=== PATIENT | male | born 1970 | race Caucasian/White ===

== ENCOUNTER 2017-04-05 00:32 | Observation (INO) | payer BC ==
[~2017-04-05] VITALS: Ht 193 cm; Wt 104.5 kg
[2017-04-05 00:34] VITALS: BP 120/78; PULSE 91; RESP 20; TEMP 98.9; O2SAT 97
[2017-04-05] MEDS ORDERED: OMEP40CA2 PO (00:56)
[2017-04-05] MEDS ORDERED: MORPHINE SULFATE 4 MG/ML INJ IV PUSH ONE ×2 (01:15→06:30)
[2017-04-05] MEDS ORDERED: ONDANSETRON HCL 4 MG/2 ML VIAL IVP ONE (01:15)
[2017-04-05] MEDS ORDERED: SODIUM CHLOR 0.9% 1000 ML INJ 1,000 ML IV SCH ×2 (01:15→06:34)
[2017-04-05] MEDS ORDERED: SODIUM CHLORIDE 0.9% FLUSH 10 ML FLUSH IV FLUSH PRN ×2 (01:15→06:45)
[2017-04-05 01:42] LABS: BASOPHIL # 0.1 TH/MM3 (0-0.2); BASOPHIL % 0.3 % (0.0-2.0); EOSINOPHIL % 0.1 % (0.0-4.0); HEMATOCRIT 43.6 % (39.0-51.0); HEMO FLAGS DIFF FINAL; LYMPH % 6.5 % (9.0-44.0); LYMPHOCYTE # 1.1 TH/MM3 (1.0-4.8); MEAN CELL VOLUME 91.9 FL (80.0-100.0); MEAN CORPUSCULAR HEMOGLOBIN 31.3 PG (27.0-34.0); MONO % 5.2 % (0.0-8.0); NEUT % 87.9 % (16.0-70.0); PLATELET COUNT 251 TH/MM3 (150-450); RED BLOOD COUNT 4.75 MIL/MM3 (4.50-5.90); RED CELL DISTRIBUTION WIDTH 13.5 % (11.6-17.2)
[2017-04-05 01:51] LABS: PROTHROMBIN TIME - PATIENT 10.7 SEC (9.8-11.6)
[2017-04-05 01:56] LABS: ALT (GPT) 19 U/L (12-78); ANION GAP 9 MEQ/L (5-15); AST (GOT) 17 U/L (15-37); BICARBONATE 25.4 MEQ/L (21.0-32.0); BLOOD UREA NITROGEN 15 MG/DL (7-18); CHLORIDE 108 MEQ/L (98-107); GLOMERULAR FILTRATION RATE 79 ML/MIN (>89); POTASSIUM 3.8 MEQ/L (3.5-5.1); SODIUM (NA) 142 MEQ/L (136-145)
[2017-04-05 01:58] LABS: ALKALINE PHOSPHATASE 72 U/L (45-117); TOTAL BILIRUBIN ADULT 0.6 MG/DL (0.2-1.0)
[2017-04-05] MEDS ORDERED: IOHEXOL 350 MG/ML 10 ML VIAL (for RAD DIAG) IV ONE (03:06)
--- NOTE | 2017-04-05 04:10 | RADRPT ---
EXAM DATE/TIME: 04/05/2017 03:05 [place] COMPARISON: No previous studies available for comparison. INDICATIONS : Abdominal pain with nausea and vomiting. IV CONTRAST: 98 cc Omnipaque 350 (iohexol) IV ORAL CONTRAST: No oral contrast ingested. RADIATION DOSE: 10.05 CTDIvol (mGy) MEDICAL HISTORY : None SURGICAL HISTORY : None. ENCOUNTER: Initial ACUITY: 1 day PAIN SCALE: 10/10 LOCATION: Bilateral abdomen TECHNIQUE: Volumetric scanning of the abdomen and pelvis was performed. Using automated exposure control and ad justment of the mA and/or kV according to patient size, radiation dose was kept as low as reasonably achievable to obtain optimal diagnostic quality images. DICOM format image data is available electro nically for review and comparison. FINDINGS: LOWER LUNGS: The visualized lower lungs are clear. LIVER: Homogeneous density without lesion. There is no dilation of the biliary tree. No calcified gallston es. SPLEEN: Normal size without lesion. PANCREAS: Within normal limits. KIDNEYS: Normal in size and shape. There is no mass, stone or hydronephrosis. Multiple left-sided renal cysts . Punctate nonobstructing left renal calculus. At, measuring one and 2 mm. ADRENAL GLANDS: Within normal limits. VASCULAR: There is no aortic aneurysm. BOWEL/MESENTERY: There is wall thickening versus nondistention of the colon. No inflammatory changes.. There is no fr ee intraperitoneal air or fluid. ABDOMINAL WALL: Within normal limits. RETROPERITONEUM: There is no lymphadenopathy. BLADDER: No wall thickening or mass. REPRODUCTIVE: Within normal limits. INGUINAL: There is no lymphadenopathy or hernia. MUSCULOSKELETAL: Within normal limits for patient age. CONCLUSION: 1. Wall thickening versus nondistention of the colon. No inflammatory changes. 2. Nonobstructing punctate left renal calculus. 3. Left-sided renal cyst. Ortiz Kay MD on April 05, 2017 at 4:04 Board Certified Radiologist. This report was verified electronically.
[2017-04-05] MEDS ORDERED: ONDANSETRON HCL 4 MG/2 ML VIAL IV PUSH ONE (05:00)
[2017-04-05 05:38] LABS: BLOOD, URINE TRACE (NEG); GLUCOSE,URINE NEG (NEG); KETONE, URINE 80 mg/dL (NEG); MUCUS URINE FEW /lpf (OCC); NITRITE,URINE NEG (NEG); URINE COLOR YELLOW (YELLW/STRAW)
[2017-04-05 05:39] LABS: COMMENT (UR) CULT NOT INDICATED; CULTURE IF INDICATED CULT NOT INDICATED
[2017-04-05 05:44] VITALS: O2SAT 100
[2017-04-05] MEDS ORDERED: oxyCODONE/ACETAMINOPHEN 5 MG/325 MG TAB PO ONE (05:45)
--- NOTE | 2017-04-05 06:38 | PD ---
HPI Chief Complaint: Abdominal Pain Time Seen by Provider: 01:01 Travel History International Travel<30 days: No Contact w/Intl Traveler<30days: No Traveled to known affect area: No History of Present Illness HPI Patient is a 46-year-old male who comes in complaining of abdominal pain. He says the pain started about 4 hours ago and has been getting worse. He says he gets bouts of this pain every so often, and the only thing that fixes it is morphine. Also reports nausea and vomiting. He denies fever or chills. He was drinking alcohol tonight. [facility] Past Medical History Medical History: Denies Significant Hx Diminished Hearing: No Past Surgical History Surgical History: No Previous Surgery Social History Alcohol Use: Yes (OCCASIONALLY ) Tobacco Use: No Substance Use: Yes (MARIJUANA) Allergies-Medications (Allergen,Severity, Reaction): Coded Allergies: No Known Allergies (Unverified , 04/05/17) Reported Meds & Prescriptions Reported Meds & Active Scripts Active Reported Omeprazole 40 Mg Cap 40 Mg PO DAILY Review of Systems Except as stated in HPI: all other systems reviewed are Neg General / Constitutional: No: Fever, Chills HENT: No: Headaches, Lightheadedness Cardiovascular: No: Chest Pain or Discomfort Respiratory: No: Shortness of Breath Gastrointestinal: Positive: Nausea, Vomiting, Abdominal Pain Genitourinary: No: Dysuria Musculoskeletal: No: Myalgias, Edema Skin: No Rash, No Change in Pigmentation Neurologic: No: Weakness, Dizziness Physical Exam Narrative GENERAL: Awake and alert, in mild distress due to pain. SKIN: Focused skin assessment warm/dry. HEAD: Atraumatic. Normocephalic. EYES: Pupils equal and round. No scleral icterus. ENT: No nasal bleeding or discharge. Mucous membranes pink and moist. NECK: Trachea midline. No JVD. CARDIOVASCULAR: Regular rate and rhythm. No murmur appreciated. RESPIRATORY: No accessory muscle use. Clear to auscultation. Breath sounds equal bilaterally. GASTROINTESTINAL: Abdomen soft, nondistended. Tender to palpation diffusely, worse in the epigastric area. MUSCULOSKELETAL: No obvious deformities. No clubbing. No cyanosis. No edema. NEUROLOGICAL: Awake and alert. No obvious cranial nerve deficits. Motor grossly within normal limits. Normal speech. PSYCHIATRIC: Appropriate mood and affect; insight and judgment normal. Data Data Last Documented VS Vital Signs Date Time Temp Pulse Resp B/P Pulse Ox O2 Delivery O2 Flow Rate FiO2 04/05/17 05:44 100 Room Air 04/05/17 00:34 98.9 91 20 120/78 Orders Complete Blood Count With Diff (04/05/17 01:15) Comprehensive Metabolic Panel (04/05/17 01:15) Lipase (04/05/17 01:15) Prothrombin Time / Inr (Pt) (04/05/17:15) Act Partial Throm Time (Ptt) (04/05/17:15) Urinalysis - C+S If Indicated (04/05/17:15) Ua Includes Microscopic (04/05/17:15) Ct Abd/Pel W Iv Contrast(Rout) (04/05/17:15) Iv Access Insert/Monitor (04/05/17:15) Ecg Monitoring (04/05/17:15) Oximetry (04/05/17 01:15) Morphine Inj (Morphine Inj) (04/05/17 01:15) Ondansetron Inj (Zofran Inj) (04/05/17 01:15) Sodium Chlor 0.9% 1000 Ml Inj (Ns 1000 M (04/05/17 01:15) Sodium Chloride 0.9% Flush (Ns Flush) (04/05/17 01:15) Iohexol 350 Inj (Omnipaque 350 Inj) (04/05/17 03:06) Ondansetron Inj (Zofran Inj) (04/05/17 05:00) Oxycodone-Acetamin 5-325 Mg (Percocet (04/05/17 05:45) Morphine Inj (Morphine Inj) (04/05/17 06:30) Labs Laboratory Tests Test 04/05/17 04/05/17 01:35 05:10 White Blood Count 17.0 TH/MM3 Red Blood Count 4.75 MIL/MM3 Hemoglobin 14.8 GM/DL Hematocrit 43.6 % Mean Corpuscular Volume 91.9 FL Mean Corpuscular Hemoglobin 31.3 PG Mean Corpuscular Hemoglobin 34.0 % Concent Red Cell Distribution Width 13.5 % Platelet Count 251 TH/MM3 Mean Platelet Volume 8.8 FL Neutrophils (%) (Auto) 87.9 % Lymphocytes (%) (Auto) 6.5 % Monocytes (%) (Auto) 5.2 % Eosinophils (%) (Auto) 0.1 % Basophils (%) (Auto) 0.3 % Neutrophils # (Auto) 15.0 TH/MM3 Lymphocytes # (Auto) 1.1 TH/MM3 Monocytes # (Auto) 0.9 TH/MM3 Eosinophils # (Auto) 0.0 TH/MM3 Basophils # (Auto) 0.1 TH/MM3 CBC Comment DIFF FINAL Differential Comment Prothrombin Time 10.7 SEC Prothromb Time International 1.0 RATIO Ratio Activated Partial 24.0 SEC Thromboplast Time Sodium Level 142 MEQ/L Potassium Level 3.8 MEQ/L Chloride Level 108 MEQ/L Carbon Dioxide Level 25.4 MEQ/L Anion Gap 9 MEQ/L Blood Urea Nitrogen 15 MG/DL Creatinine 1.02 MG/DL Estimat Glomerular Filtration 79 ML/MIN Rate Random Glucose 132 MG/DL Calcium Level 9.1 MG/DL Total Bilirubin 0.6 MG/DL Aspartate Amino Transf 17 U/L (AST/SGOT) Alanine Aminotransferase 19 U/L (ALT/SGPT) Alkaline Phosphatase 72 U/L Total Protein 7.4 GM/DL Albumin 3.9 GM/DL Lipase 395 U/L Urine Color YELLOW Urine Turbidity CLEAR Urine pH 7.0 Urine Specific [place] GREATER THAN 1.050 Urine Protein 30 mg/dL Urine Glucose (UA) NEG mg/dL Urine Ketones 80 mg/dL Urine Occult Blood TRACE Urine Nitrite NEG Urine Bilirubin NEG Urine Urobilinogen LESS THAN 2.0 MG/DL Urine Leukocyte Esterase NEG Urine RBC 4 /hpf Urine WBC 5 /hpf Urine Mucus FEW /lpf Microscopic Urinalysis Comment CULT NOT INDICATED MDM Medical Decision Making Medical Screen Exam Complete: Yes Emergency Medical Condition: Yes Differential Diagnosis Pancreatitis versus cholecystitis versus cholelithiasis versus gastritis Narrative Course Patient is a 46-year-old male who comes in complaining of abdominal pain with nausea and vomiting. Exam shows diffuse tenderness, worse in the epigastric area. IV established, labs sent. Labs showed elevated lipase at 365. CT abdomen and pelvis shows no acute abnormal maladies. Patient given IV fluids, morphine, Zofran. Patient was comfortable for a little while, but then started to complain of pain again. He was given a Percocet and a second dose of Zofran. He continued to complain of pain. Given another dose of morphine. Patient will be placed in observation for further management. Diagnosis Primary Impression: Pancreatitis Qualified Code: K85.20 - Alcohol-induced acute pancreatitis without infection or necrosis Admitting Information Admitting Physician Requests: Observation Condition: Stable Shannon Varghese MD Apr 05, 2017 06:38
[2017-04-05] MEDS ORDERED: ONDANSETRON HCL 4 MG/2 ML VIAL IVP PRN (06:45)
[2017-04-05] MEDS ORDERED: MAGNESIUM HYDROXIDE SUSP 30 ML CUP PO PRN (06:45)
[2017-04-05] MEDS ORDERED: SENNOSIDES 8.6 MG TAB PO PRN (06:45)
[2017-04-05] MEDS ORDERED: BISACODYL 10 MG SUPP RECTAL PRN (06:45)
[2017-04-05] MEDS ORDERED: MORPHINE SULFATE 4 MG/ML INJ IV PRN (06:45)
[2017-04-05] MEDS ORDERED: LACTULOSE SYRUP 20 GM/30 ML CUP PO PRN (06:45)
[2017-04-05] MEDS ORDERED: ACETAMINOPHEN 325 MG TAB PO PRN (06:45)
[2017-04-05] MEDS ORDERED: CIPROFLOXACIN 400 MG PREMIX 200 ML IV SCH (08:00)
[2017-04-05] MEDS ORDERED: metroNIDAZOLE 500 MG INJ 100 ML IV SCH (08:00)
[2017-04-05 08:35] VITALS: BP 140/78; PULSE 60; RESP 18; TEMP 97.8; O2SAT 96
[2017-04-05] MEDS ORDERED: PANTOPRAZOLE SODIUM 40 MG VIAL IV PUSH SCH (09:00)
[2017-04-05] MEDS ORDERED: DOCUSATE SODIUM 50 MG/SENNA 8.6 MG TAB PO SCH (09:00)
[2017-04-05] MEDS ORDERED: SODIUM CHLORIDE 0.9% FLUSH 10 ML FLUSH IV FLUSH SCH (09:00)
--- NOTE | 2017-04-05 09:10 | PD.CONS ---
HPI History of Present Illness This is a 46 year old male who presented to the ER with c/o worsening abdominal pain that started last night. Patient reports abdominal pain is diffuse, intermittent, and worse with movement. Describes the pain as if his "insides are turning out." States Morphine does help control the pain, but now it is starting to wear off. Reports nausea, but no vomiting. States he is having normal BMs, no melena or hematochezia. Patient states that he was drinking last night before symptom onset and reports that he had 4 beers. States he does not drink alcohol that often. He has had similar episodes in the past and has been hospitalized during these episodes. He reports during his hospitalizations his workup is always "normal" and no one can figure out what is wrong with him. He has had EGD/Colonoscopy in the past about 2 years ago in [place], which showed "acid" and "gas" per patient. Patient denies any other medical issues and the only medication he is on is Omeprazole. (Sameera Singh) PFSH Past Medical History None reported Past Surgical History EGD/Colonoscopy, 2 years ago in [place] (Sameera Singh) Coded Allergies: No Known Allergies (Unverified , 04/05/17) Medications Current Medications Medications (Trade) Dose Ordered Sig/Chi Route PRN Reason Start Time Stop Time Status Last Admin Dose Admin Pantoprazole Sodium 40 mg 40 mg Q12H IV PUSH 04/05/17 09:00 Ciprofloxacin/ Dextrose 200 ml @ 200 mls/hr Q12H IV 04/05/17 08:00 Metronidazole 100 ml @ 100 mls/hr Q8H IV 04/05/17 08:00 Sodium Chloride (NS 1000 ml Inj) 1,000 ml @ 100 mls/hr Q10H IV 04/05/17 06:34 Sodium Chloride (NS Flush) 2 ml UNSCH PRN IV FLUSH FLUSH AFTER USING IV ACCESS 04/05/17 06:45 Sodium Chloride (NS Flush) 2 ml BID IV FLUSH 04/05/17 09:00 Ondansetron HCl (Zofran Inj) 4 mg Q6H PRN IVP NAUSEA OR VOMITING 04/05/17 06:45 Acetaminophen (Tylenol) 650 mg Q6H PRN PO FEVER/PAIN SCALE 1 TO 2 04/05/17 06:45 Morphine Sulfate (Morphine Inj) 2 mg Q3H PRN IV Pain 6-10 04/05/17 06:45 Oxycodone HCl (Roxicodone) 5 mg Q4H PRN PO PAIN SCALE 3 TO 5 04/05/17 06:45 Senna/Docusate Sodium (Leanne-Colace) 1 tab BID PO 04/05/17 09:00 Magnesium Hydroxide (Milk Of Magnesia Liq) 30 ml Q12H PRN PO MILD - MODERATE CONSTIPATION 04/05/17 06:45 Sennosides (Senokot) 17.2 mg Q12H PRN PO MODERATE - SEVERE CONSTIPATION 04/05/17 06:45 Bisacodyl (Dulcolax Supp) 10 mg DAILY PRN RECTAL SEVERE CONSITIPATION 04/05/17 06:45 Lactulose (Lactulose Liq) 30 ml DAILY PRN PO SEVERE CONSITIPATION 04/05/17 06:45 Family History Noncontributory Social History ETOH, states he does not drink often, but last night he did drink 4 beers Tobacco, denies Illicit Drugs, Marijuana (Sameera Singh) Review of Systems Constitutional: DENIES: Diaphoretic episodes, Fatigue, Fever, Weight gain, Weight loss, Chills, Dizziness, Change in appetite, Night Sweats Endocrine: DENIES: Polydipsia, Polyuria Eyes: DENIES: Blurred vision, Photosensitivity, Double Vision Ears, nose, mouth, throat: DENIES: Hearing loss, Vertigo, Oral lesions, Throat pain, Hoarseness Respiratory: DENIES: Cough, Wheezing, Hemoptysis, Sputum production, Shortness of breath Cardiovascular: DENIES: Chest pain, Palpitations, Syncope, Lower Extremity Edema, Orthopnea, Claudication Gastrointestinal: COMPLAINS OF: Abdominal pain, Nausea, DENIES: Black stools, Bloody stools, Constipation, Diarrhea, Vomiting, Difficulty Swallowing, Anorexia , Odynophagia, Swelling of Abdomen, Heartburn, Hematemesis Genitourinary: DENIES: Urinary frequency, Urinary incontinence, Urgency, Hematuria, Dysuria, Nocturia Musculoskeletal: DENIES: Joint pain, Muscle aches, Stiffness, Joint Swelling, Back pain, Neck pain Integumentary: DENIES: Abnormal pigmentation, Nail changes, Pruritus, Rash, Jaundice Hematologic/lymphatic: DENIES: Bruising, Lymphadenopathy Immunologic/allergic: DENIES: Eczema, Urticaria Neurologic: DENIES: Abnormal gait, Headache, Localized weakness, Paresthesias Psychiatric: DENIES: Anxiety, Confusion, Mood changes, Depression, Agitation, Suicidal Ideation (Sameera Singh) GI Exam Vitals I&O Vital Signs Date Time Temp Pulse Resp B/P Pulse Ox O2 Delivery O2 Flow Rate FiO2 04/05/17 08:35 97.8 60 18 140/78 96 04/05/17 05:44 100 Room Air 04/05/17 00:34 98.9 91 20 120/78 97 Room Air Imaging Last Impressions Abdomen/Pelvis CT 04/05/17 0115 Signed Impressions: Service Date/Time: Wednesday, April 05, 2017 03:05 - CONCLUSION: 1. Wall thickening versus nondistention of the colon. No inflammatory changes. 2. Nonobstructing punctate left renal calculus. 3. Left-sided renal cyst. Ortiz Kay MD Laboratory Test 04/05/17 04/05/17 01:35 05:10 White Blood Count 17.0 TH/MM3 Red Blood Count 4.75 MIL/MM3 Hemoglobin 14.8 GM/DL Hematocrit 43.6 % Mean Corpuscular Volume 91.9 FL Mean Corpuscular Hemoglobin 31.3 PG Mean Corpuscular Hemoglobin 34.0 % Concent Red Cell Distribution Width 13.5 % Platelet Count 251 TH/MM3 Mean Platelet Volume 8.8 FL Neutrophils (%) (Auto) 87.9 % Lymphocytes (%) (Auto) 6.5 % Monocytes (%) (Auto) 5.2 % Eosinophils (%) (Auto) 0.1 % Basophils (%) (Auto) 0.3 % Neutrophils # (Auto) 15.0 TH/MM3 Lymphocytes # (Auto) 1.1 TH/MM3 Monocytes # (Auto) 0.9 TH/MM3 Eosinophils # (Auto) 0.0 TH/MM3 Basophils # (Auto) 0.1 TH/MM3 CBC Comment DIFF FINAL Differential Comment Prothrombin Time 10.7 SEC Prothromb Time International 1.0 RATIO Ratio Activated Partial 24.0 SEC Thromboplast Time Sodium Level 142 MEQ/L Potassium Level 3.8 MEQ/L Chloride Level 108 MEQ/L Carbon Dioxide Level 25.4 MEQ/L Anion Gap 9 MEQ/L Blood Urea Nitrogen 15 MG/DL Creatinine 1.02 MG/DL Estimat Glomerular Filtration 79 ML/MIN Rate Random Glucose 132 MG/DL Calcium Level 9.1 MG/DL Total Bilirubin 0.6 MG/DL Aspartate Amino Transf 17 U/L (AST/SGOT) Alanine Aminotransferase 19 U/L (ALT/SGPT) Alkaline Phosphatase 72 U/L Total Protein 7.4 GM/DL Albumin 3.9 GM/DL Lipase 395 U/L Urine Color YELLOW Urine Turbidity CLEAR Urine pH 7.0 Urine Specific [place] GREATER THAN 1.050 Urine Protein 30 mg/dL Urine Glucose (UA) NEG mg/dL Urine Ketones 80 mg/dL Urine Occult Blood TRACE Urine Nitrite NEG Urine Bilirubin NEG Urine Urobilinogen LESS THAN 2.0 MG/DL Urine Leukocyte Esterase NEG Urine RBC 4 /hpf Urine WBC 5 /hpf Urine Mucus FEW /lpf Microscopic Urinalysis Comment CULT NOT INDICATED Physical Examination HEENT: PERRLA; normocephalic; atraumatic; no jaundice. NECK: Neck is supple, no JVD, no lymphadenopathy. CHEST: CTA CARDIAC: RRR with no murmur gallop or rubs. ABDOMEN: Soft, nondistended, mild diffuse tenderness; no hepatosplenomegaly; bowel sounds x 4 quadrants EXTREMITIES: No clubbing, cyanosis, or edema. SKIN: Normal; no rash; no jaundice. [employer]: No focal deficits; alert and oriented x 3 (Sameera Singh) Assessment and Plan Plan ASSESSMENT Abdominal pain, with diffuse tenderness to palpation. Elevated lipase, 365 (04/05 ). Patient states he drank 4 beers prior to symptom onset. Has history of similar episodes of current symptoms. Had EGD/Colonoscopy 2 years ago in [place], which per patient showed "acid" and "gas," otherwise normal. Nausea, but no vomiting today. Abdomen/Pelvis CT 04/05/17--1. Wall thickening versus nondistention of the colon. No inflammatory changes. 2. Nonobstructing punctate left renal calculus. 3. Left- sided renal cyst. PLAN - Monitor lipase, amylase - Monitor labs - IV fluids - Continue Zofran - Supportive care - Further recommendations to follow based on results of above Patient seen and examined by Dr. Esteves and myself and this note is written on his behalf. (Sameera Singh) Physician Comments Patient seen and examined Agree with above Continue with current supportive care Monitor labs Patient reports prior endoscopies and colonoscopies mostly unremarkable Patient denies any ongoing diarrhea or change in bowel habits Patient admits to marijuana use and this may be the instigator Okay to advance diet as tolerated at this point and monitor labs (Roland Esteves MD) Sameera Singh Apr 05, 2017 09:10 Roland Esteves MD Apr 05, 2017 15:52
[2017-04-05 12:33] VITALS: BP 129/78; PULSE 72; RESP 18; TEMP 98.2; O2SAT 72
[2017-04-05] MEDS ORDERED: METR-1 PO (15:12)
[2017-04-05] MEDS ORDERED: ZOFR8TAB4 SL (15:12)
[2017-04-05] MEDS ORDERED: CIPR-9 PO (15:12)
--- NOTE | 2017-04-05 15:13 | HHI.HP ---
HPI Service [facility] Primary Care Physician No Primary Care Physician Admission Diagnosis Pancreatitis Diagnoses: Chief Complaint: Abdominal pain Travel History International Travel<30 Days: No Contact w/Intl Traveler <30 Da: No Traveled to Known Affected Are: No History of Present Illness Written by Talha Ramirez, acting as scribe for Dr. Morrison on 04/05/17 at 15:00. 46 years old male with past medical history of GERD and recurrent abdominal pain who presented for abdominal pain. The patient states that last night around 7 PM he began having acute onset of anterior abdominal pain. Patient has had multiple episodes in the past with similar symptoms. He states that morphine is only thing that helps his symptoms. He states that after he received morphine in the ED, his symptoms resolved. The patient had episodes of nausea and vomiting yesterday, which have resolved and he has been tolerating oral intake. He states his stools have been a little loose for the past 2 days, denies diarrhea. He did have 4 beers last night, which he does drink normally on the weekends, but not usually that much. He does report occasional marijuana use, last use 3 days ago. He denies any opiate use. Describes the pain as crampy, sharp, constant, comes in waves. He states that he's been at other hospitals in the past and has had extensive GI workups including multiple EGD and colonoscopies. He has been told he has acid in his stomach. He states his colonoscopies have been normal in the past. He denies any blood in his stools. He denies any fevers or chills. He feels well this time and is asking to go home. Review of Systems Except as stated in HPI: all other systems reviewed are Neg Past Family Social History Past Medical History GERD Past Surgical History EGD/Colonoscopy Varicocelectomy Reported Medications Omeprazole 40 Mg Cap 40 Mg PO DAILY Allergies: Coded Allergies: No Known Allergies (Unverified , 04/05/17) Active Ordered Medications Current Medications Medications (Trade) Dose Ordered Sig/Chi Route Start Time Stop Time Status Last Admin Pantoprazole Sodium 40 mg 40 mg Q12H IV PUSH 04/05/17 09:00 04/05/17 11:03 Ciprofloxacin/ Dextrose 200 ml @ 200 mls/hr Q12H IV 04/05/17 08:00 04/05/17 11:04 Metronidazole 100 ml @ 100 mls/hr Q8H IV 04/05/17 08:00 04/05/17 11:05 (NS 1000 ml Inj) 1,000 ml @ 100 mls/hr Q10H IV 04/05/17 06:34 04/05/17 11:05 (NS Flush) 2 ml UNSCH PRN IV FLUSH 04/05/17 06:45 (NS Flush) 2 ml BID IV FLUSH 04/05/17 09:00 04/05/17 11:04 (Zofran Inj) 4 mg Q6H PRN IVP 04/05/17 06:45 04/05/17 11:08 (Tylenol) 650 mg Q6H PRN PO 04/05/17 06:45 (Morphine Inj) 2 mg Q3H PRN IV 04/05/17 06:45 (Roxicodone) 5 mg Q4H PRN PO 04/05/17 06:45 (Leanne-Colace) 1 tab BID PO 04/05/17 09:00 04/05/17 11:03 (Milk Of Magnesia Liq) 30 ml Q12H PRN PO 04/05/17 06:45 (Senokot) 17.2 mg Q12H PRN PO 04/05/17 06:45 (Dulcolax Supp) 10 mg DAILY PRN RECTAL 04/05/17 06:45 (Lactulose Liq) 30 ml DAILY PRN PO 04/05/17 06:45 Family History Fluid and his 70s of emphysema/COPD Mother is alive in her 80s, had diverticulitis Social History ETOH, he drinks socially on the weekends Tobacco, denies Marijuana Physical Exam Vital Signs Vital Signs Date Time Temp Pulse Resp B/P Pulse Ox O2 Delivery O2 Flow Rate FiO2 04/05/17 12:33 98.2 72 18 129/78 72 04/05/17 08:35 97.8 60 18 140/78 96 04/05/17 05:44 100 Room Air 04/05/17 00:34 98.9 91 20 120/78 97 Room Air Physical Exam GENERAL: Well-developed well-nourished. In no acute distress. SKIN: Warm and dry. No lesions noted. HEENT: Normocephalic. Pupils equal and round. Mucous membranes pink and moist. CARDIOVASCULAR: Regular rate and rhythm. No murmur appreciated. RESPIRATORY: No accessory muscle use. Clear to auscultation. Breath sounds equal bilaterally. GASTROINTESTINAL: Abdomen soft, non-tender, nondistended. Bowel sounds x4. MUSCULOSKELETAL: No obvious deformities. No clubbing or cyanosis. No edema. NEUROLOGICAL: Awake and alert. No focal neurological deficits. Moves upper and lower extremities spontaneously. Normal speech. PSYCHIATRIC: Appropriate mood and affect; insight and judgment normal. Laboratory Laboratory Tests Test 04/05/17 04/05/17 01:35 05:10 White Blood Count 17.0 Red Blood Count 4.75 Hemoglobin 14.8 Hematocrit 43.6 Mean Corpuscular Volume 91.9 Mean Corpuscular Hemoglobin 31.3 Mean Corpuscular Hemoglobin 34.0 Concent Red Cell Distribution Width 13.5 Platelet Count 251 Mean Platelet Volume 8.8 Neutrophils (%) (Auto) 87.9 Lymphocytes (%) (Auto) 6.5 Monocytes (%) (Auto) 5.2 Eosinophils (%) (Auto) 0.1 Basophils (%) (Auto) 0.3 Neutrophils # (Auto) 15.0 Lymphocytes # (Auto) 1.1 Monocytes # (Auto) 0.9 Eosinophils # (Auto) 0.0 Basophils # (Auto) 0.1 CBC Comment DIFF FINAL Differential Comment Prothrombin Time 10.7 Prothromb Time International 1.0 Ratio Activated Partial 24.0 Thromboplast Time Sodium Level 142 Potassium Level 3.8 Chloride Level 108 Carbon Dioxide Level 25.4 Anion Gap 9 Blood Urea Nitrogen 15 Creatinine 1.02 Estimat Glomerular Filtration 79 Rate Random Glucose 132 Calcium Level 9.1 Total Bilirubin 0.6 Aspartate Amino Transf 17 (AST/SGOT) Alanine Aminotransferase 19 (ALT/SGPT) Alkaline Phosphatase 72 Total Protein 7.4 Albumin 3.9 Lipase 395 Urine Color YELLOW Urine Turbidity CLEAR Urine pH 7.0 Urine Specific [place] GREATER THAN 1.050 Urine Protein 30 Urine Glucose (UA) NEG Urine Ketones 80 Urine Occult Blood TRACE Urine Nitrite NEG Urine Bilirubin NEG Urine Urobilinogen LESS THAN 2.0 Urine Leukocyte Esterase NEG Urine RBC 4 Urine WBC 5 Urine Mucus FEW Microscopic Urinalysis Comment CULT NOT INDICATED Urine Opiates Screen POS Urine Barbiturates Screen NEG Urine Amphetamines Screen NEG Urine Benzodiazepines Screen NEG Urine Cocaine Screen NEG Urine Cannabinoids Screen POS Result Diagram: 04/05/17 0135 04/05/17 0135 Imaging Last Impressions Abdomen/Pelvis CT 04/05/17 011 Signed Impressions: Service Date/Time: Wednesday, April 05, 2017 03:05 - CONCLUSION: 1. Wall thickening versus nondistention of the colon. No inflammatory changes. 2. Nonobstructing punctate left renal calculus. 3. Left-sided renal cyst. Ortiz Kay MD Assessment and Plan Assessment and Plan 46 years old male with past medical history of GERD and recurrent abdominal pain who presented for abdominal pain Abdominal pain: Unclear etiology. Symptoms have resolved at this time. Abdominal CT showed wall thickening vs nondistention of the colon without any inflammatory change; otherwise no acute process noted. WBC 17, although could be from retching. Afebrile. Lipase mildly elevated at 395. -GI consulted, recommended supportive care. -Empiric treatment for colitis with course of Cipro and Flagyl -Continue PPI -Continue Zofran as needed, patient has at home -Encouraged marijuana cessation Disposition: Repeat CBC and if white count is improved, discharge planning later today. Discussed Condition With Patient Attending Statement This note was transcribed by scribe [Talha Ramirez]. I, Dr. Jack Morrison personally performed the history, physical exam, and medical decision making; and confirmed the accuracy of the information in the transcribed note. Authenticated by Dr. Jack Morrison on 04/06/17 at 00:52. Talha Ramirez Apr 05, 2017 15:13 Jack Morrison MD Apr 06, 2017 00:53
[2017-04-05] MEDS ORDERED: FLOR250C PO (15:16)
[2017-04-05 16:09] LABS: AUTOMATED NEUTROPHIL # 10.3 TH/MM3 (1.8-7.7); BASOPHIL % 0.2 % (0.0-2.0); HEMO FLAGS DIFF FINAL; LYMPH % 9.5 % (9.0-44.0); LYMPHOCYTE # 1.2 TH/MM3 (1.0-4.8); MEAN CELL VOLUME 92.9 FL (80.0-100.0); MEAN CORPUSCULAR HEMOGLOBIN 30.8 PG (27.0-34.0); MEAN CORPUSCULAR HGB CONC 33.1 % (32.0-36.0); MONO % 7.8 % (0.0-8.0); NEUT % 82.5 % (16.0-70.0); PLATELET COUNT 211 TH/MM3 (150-450); RED BLOOD COUNT 4.31 MIL/MM3 (4.50-5.90); RED CELL DISTRIBUTION WIDTH 13.7 % (11.6-17.2); WHITE BLOOD COUNT 12.5 TH/MM3 (4.0-11.0)
== END 2017-04-05 15:50 | disposition home or self-care (01) ==
LOC: NEPE 00:32 → NEDH 06:43 → NEPGCP 07:39
PROVIDERS: ADMIT Internal Medicine; ATTEND Internal Medicine
DX: K85.20 Alcohol induced acute pancreatitis without necrosis or infection (principal); F12.90 Cannabis use, unspecified, uncomplicated; R74.8 Abnormal levels of other serum enzymes; N20.0 Calculus of kidney; N28.1 Cyst of kidney, acquired; K21.9 Gastro-esophageal reflux disease without esophagitis
CPT/HCPCS: 74177; 80053; 80307; 81001; 83690; 85025; 85610; 85730; 96361; 96374; 96375; 96376; 99285; C9113; G0378; J0744; J2270; J2405; J7030; Q9967